=== PATIENT | female | born 1970 | race Caucasian/White ===

== ENCOUNTER → 2024-05-13 10:52 | Outpatient (BNVA) | payer MEDICAID, SELFPAY | PROVIDERS: PCP Family Medicine; Visit Provider Dietitian, Registered | DX: R13.10 Dysphagia, unspecified (principal) | CPT/HCPCS: 97802 ==

== ENCOUNTER → 2024-05-13 10:52 | Outpatient (AMB) | payer MEDICAID, SELFPAY ==
--- NOTE | 2024-05-13 11:00 | MHC.AMNUTRGE ---
VS Expanded 05/13/24 13:41 Height 4 ft 6 in Weight 113 lb 0.4 oz BMI 27.2 Intake Visit Reasons: Dysphagia Allergies Penicillins Adverse Reaction (Verified 05/14/24 09:27) Hives valproic acid Adverse Reaction (Verified 05/14/24 09:28) Hives Medication List - Last Reconciled 05/13/[address], LDN calcium carbonate 500 mg PO DAILY cholecalciferol (vitamin D3) (Pediatric D-Carlos) 10 mcg PO DAILY multivitamin 1 tab PO DAILY Nutrition Presentation Details: Pt presents for MNT for dysphagia Pt is accompanied by alf staff Pt has cerebral palsy, bedridden, hearing loss, intellectual functioning disability. Pt may have 1-2 oz of food via mouth for pleasure only due to risk of aspiration. Pt is getting enteral feedings via Gtube : Osmolite 1.2 @ 100 ml/hr for 9 hours (4 cans/day) and 250 ml water boluses 4 times a day Current feeding provide : 1,137 kcal, 53 g protein, no fiber, 1800 ml water (including water boluses) Pt on MVI, vitamin D and Calcium supplement. Enteral feeding does not contain fiber Per staff, Wt at 113 lbs on 04/24/24 and weight is keeping consistent No concerns of constipation/diarrhea/dehydration/over hydration no wounds /bed sores BS Monitoring Most Recent Diabetes Results: No Data to Display Nutrition Needs Calculation Weight: 113 lb 0.4 oz (51 kg BW) Estimated kcal needs (kcal/day): 1,181 (20-23 kcal/kg BW) Estimated protein needs (gm/day): 51 (1-1.2 g /kg BW) Estimated fluid needs (mls/day): 1,720 (as per Stephan Segar Method) [facility] Medical History (Updated 05/14/24 @ 09:[address], LDN) Atopic dermatitis Intellectual functioning disability Hearing loss Epilepsy Gastrostomy tube in situ Contracture of multiple joints Incontinence GERD (gastroesophageal reflux disease) Cerebral palsy Assessment & Plan Assessment & Plan (1) Dysphagia: Comment: on Enteral feeding via Gtube Code(s): R13.10 - Dysphagia, unspecified Category: Medical Plan: Continue as established: Osmolite 1.2 @100 ml/hr for 9 hours and 250 ml water bolus 4 x per day (to be used for medications, flushes, water boluses) This provides 1080 kcal, 50 g protein, 1800 ml water. This formula does not have fiber May recommend adding fiber, starting with 4 g of fiber a day and gradually increase to 12 g of fiber a day. May recommend 2 tsp of benefiber mixed with 250 ml water once a day for a week and gradually increase to 2 times a day for another week and the third week to 3 times a day. Monitor for tolerance, bloating, constipation or diarrhea. Call for questions. Coding Level of Care Code Nutr Indiv Intake (31296) Diagnoses Dysphagia R13.10 Time Spent (min) 30
--- OUTSIDE RECORDS SUMMARY | 2024-05-13 13:26 | XMS_ITS | Clinical Summary ---
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 Name Role Phone Unavailable Primary Care Provider Unavailabl e Encounters Date Type Department Care Team Description 02/22/2024 Telephone General Surgery - [place] [facility] [address] [place] [address] Adelaida Foote MA from Last 3 Months Social History Tobacco Use Types Packs/Day Years Used Date Smoking Tobacco: Never Assessed Comments Unknown Sex and Gender Information Value Date Recorded Sex Assigned at Not on file Legal Sex Female 4:38 PM EDT Gender Identity Not on file Sexual Orientation Not on file Plan of Treatment Health Maintenance Due Date Last Done Comments Breast Cancer Screening 1972 DTaP,Tdap,and Td Vaccines (1 - Tdap) 1991 Hepatitis B Vaccines (1 of 3 - 19+ 3-dose series) 1991 Cervical Cancer Screening: P ap Smear 1993 Pneumococcal Vaccine: 50+ Ye ars (1 of 1 - PCV) 2022 Zoster Vaccines (1 of 2) 2022 COVID-19 Vaccine (2023-2 5 season) 2023 Influenza Vaccine (#1) 2023 Colorectal Cancer Screening: Colonoscopy 01/06/2024 Depression Screening 01/06/2024 HIV Screening 01/06/2024 Hepatitis C Screening 01/06/2024 Social Influencers of Health Screening 01/06/2024 HIB Vaccines Aged Out No longer eligi ble based on patient's age to complete this topic HPV Vaccines Aged Out No longer eligi ble based on patient's age to complete this topic Hepatitis A Vaccines Aged Out No long er eligible based on patient's age to complete this topic IPV Vaccines Aged Out No longer eligi ble based on patient's age to complete this topic MMR Vaccines Aged Out No longer eligi ble based on patient's age to complete this topic Meningococcal ACWY Vaccine Aged Out N o longer eligible based on patient's age to complete this topic Meningococcal B Vacine Aged Out No lo nger eligible based on patient's age to complete this topic Pneumococcal Vaccine: Pediat rics (0 to 5 Years) and At-Risk Patients (6 to 64 Years) Aged Out No longer eligible b ased on patient's age to complete this topic RSV Immunization Patients Un dianelys 20 months Aged Out No longer eligible b ased on patient's age to complete this topic Varicella Vaccines Aged Out No longer eligible based on patient's age to complete this topic
--- OUTSIDE RECORDS SUMMARY | 2024-05-13 13:26 | XMS_ITS | Data Portability ---
Author Organization [place] [facility], Allergy Address [address] [address] Care Team Providers Care Electrodynamicist Name Role Phone ALLEN PÉREZ Primary Care Provider Assessment Encounter Date Assessment Date Assessment LastModified by Organization Details LastModified Time 08/21/2023 08/21/2023 Impacted cerumen was debrided bilaterally today. Ear exam is otherwise normal. She will follow up in four months, sooner with any acute concerns. lore Not available 08/21/2023 11:34:11 02/04/2024 02/04/2024 Impacted cerumen was debrided bilaterally today. She will follow up in four months. [email or web address] Not available 02/04/2024 11:41:39 Plan of Treatment Reminders Order Date Submit Date Provider Last Modified By Organization Details Last Modified Time Details Appointments Establish ed 15 2024 11:30A M VENKAT DE LA CRUZ PA-C Not available Not available Not available Lab None recorded. Referral None recorded. Procedures None recorded. Surgeries None recorded. Imaging None recorded. Medication Orders None recorded. Patient TargetsNo targets recorded. Patient InstructionsNo instructions recorded. Reason for Referral None Reported. Problems Name Problem SNOMED Code Status Onset Date Resolution Date Notes Provider Name and Address Organization Details Recorded Time Impacted cerumen of bilateral ears 69421788785 62331 Active 2018 Impacted cerumen, bilateral ; Note: Date Diagnosed : 09/26/2018 11:06 AM (H61.23) Not Available [facility] 02:13:29 Acute serous otitis media of right ear 44405066971 67170 Active 2014 Acute serous otitis media, right ear; Note: Date Diagnosed : 01/15/2015 8:39 AM (H65.01) Not Available [facility] 4 02:12:42 Disorder of right Eustachia n tube 94249648505 89346 Active 2014 Other specified disorders of Eustachia n tube, right ear; Note: Date Diagnosed : 01/14/2015 11:45 AM (H69.81) Not Available [facility] 4 02:14:21 Impacted cerumen in left ear 68148569708 81877 Active 2019 Impacted cerumen, left ear; Note: Date Diagnosed : 10/30/2019 4:35 PM (H61.22) Not Available [facility] 4 02:14:21 Otorrhea of right ear 48197427864 34956 Active 2019 Otorrhea, right ear; Note: Date Diagnosed : 04/09/2019 11:39 AM (H92.11) Not Available [facility] 4 02:14:00 Impacted cerumen in right ear 46394665125 47582 Active 2015 Impacted cerumen, right ear; Note: Date Diagnosed : 04/09/2015 4:57 AM (H61.21) Not Available [facility] 4 02:12:59 Cerebral palsy 224533722 Active 2023 ROSALIA MOLINA PA-C [address] [place], [place] [address], [address] , [facility] 4 11:33:20 Functiona l quadriple sukhwinder 47743676640 9106 Active 2023 ROSALIA MOLINA PA-C [address] [place], [place] [address], [address] , [facility] 4 11:33:34 Problem Notes None recorded. Medical Equipment None Reported. Allergies Allergen ID Allergen Name Allergen Category Reaction Reaction Severity Criticality Documentation Date Start Date Code Code System Note Provider Name and Address Organization Details Recorded Time 78949 valproic acid medicatio n other Not available Not available 07/24/2023 97226 RxNorm React ion: unkno wn, unspe rosette d;; Not Available [facility] 4 00:48:47 11013 penicilli n V potassium medicatio n other Not available Not available 07/24/2023 5 RxNorm React ion: unkno wn, unspe cifie d;; Not Available [facility] 4 00:49:04 Medications Name Sig Start Date Stop Date Status Note LastModified by Organization Details LastModified Time melatonin 1 mg tabs active Not Available Not Available No t Available oralyte soln active Not Available Not Available Not Available multivitam in tabs active Not Available Not Available Not Available multivitam in tablet active Not Available Not Available No t Available hydrocorti sone 0.5 % topical cream 2014 active Medicatio n ID: [id number] Br and Name: hydrocort isone Sen d Method: E-Prescri bed Subs Allowed: subs OK Medica tionGener icName: hydrocort isone Not Available Not Available Not Available acetaminop hen 325 mg tablet active Not Available Not Available Not Available loperamide 2 mg capsule active Not Available Not Available Not Available sucralfate 100 mg/mL oral suspension GIVE 10ML VIA G TUBE THREE TIMES A DAY active Not Available Not Available No t Available Calcium Antacid 200 mg (as calcium carbonate 500 mg) chewable tablet active Not Available Not Available Not Available Enema Disposable 19 gram-7 gram/118 mL active Not Available Not Available Not Available Calciferol 200 mcg/mL (8,000 unit/mL) oral drops 2014 active Medicatio n ID: [id number] Br and Name: Calcifero l Send Method: E-Prescri bed Subs Allowed: subs OK Medica tionGener icName: Calcifero l Not Available Not Available Not Available guaifenesi n 100 mg/5 mL oral liquid 2014 active Medicatio n ID: [id number] Br and Name: guaifenes in Send Method: E-Prescri bed Subs Allowed: subs OK Medica tionGener icName: guaifenes in Not Available Not Available Not Available ofloxacin 0.3 % ear drops 4 drop 2019 active Medicatio n ID: [id number] Du ration Value: 7 Prescrib ed By Name: SERGIO Hart Name: ofloxacin Send Method: E-Prescri bed Subs Allowed: subs OK Medica tionGener icName: ofloxacin Not Available Not Available Not Available benzoyl peroxide 6 % topical cleanser 2014 active Medicatio n ID: [id number] Br and Name: benzoyl peroxide Send Method: E-Prescri bed Subs Allowed: subs OK Medica tionGener icName: benzoyl peroxide Not Available Not Available Not Available triamcinol one acetonide 0.025 % topical cream 2014 active Medicatio n ID: [id number] Br and Name: triamcino lone acetonide Send Method: E-Prescri bed Subs Allowed: subs OK Medica tionGener icName: triamcino lone acetonide Not Available Not Available Not Available baclofen 10 mg tablet active Not Available Not Available Not Available bisacodyl 10 mg rectal suppositor y active Not Available Not Available Not Available diphenhydr amine 25 mg capsule active Not Available Not Available N ot Available triamcinol one acetonide 0.1 % topical ointment active Not Available Not Available Not Available diphenhydr amine 25 mg tablet 2014 active Medicatio n ID: [id number] Br and Name: diphenhyd ramine HCl Send Method: E-Prescri bed Subs Allowed: subs OK Medica tionGener icName: diphenhyd ramine HCl Not Available Not Available Not Available ibuprofen 400 mg tablet 2014 active Medicatio n ID: [id number] Br and Name: ibuprofen Send Method: E-Prescri bed Subs Allowed: subs OK Medica tionGener icName: ibuprofen Not Available Not Available Not Available Ear Drops (carbamide peroxide) 6.5 % 5 dropperfu l active Not Available Not Available No t Available bisacodyl 5 mg tablet,del ayed release 2014 active Medicatio n ID: [id number] Br and Name: bisacodyl Send Method: E-Prescri bed Subs Allowed: subs OK Medica tionGener icName: bisacodyl Not Available Not Available Not Available ibuprofen 600 mg tablet active Not Available Not Available Not Available hydrocorti sone 2.5 % topical ointment active Not Available Not Available Not Available minocyclin e 100 mg tablet active Not Available Not Available Not Available bacitracin 500 unit/gram topical packet 2014 active Medicatio n ID: [id number] Br and Name: bacitraci n Send Method: E-Prescri bed Subs Allowed: subs OK Medica tionGener icName: bacitraci n Not Available Not Available Not Available levetirace rodarte 100 mg/mL oral solution active Not Available Not Available Not Available melatonin 1 mg tablet active Not Available Not Available Not Available lactulose 10 gram/15 mL oral solution active Not Available Not Available Not Available calcium 500 mg/5 mL (as calcium carb 1,250 mg/5 mL) oral suspension active Not Available Not Available N ot Available Mylanta 2014 active Medicatio n ID: [id number] Br and Name: mylanta S end Method: E-Prescri bed Subs Allowed: subs OK Medica tionGener icName: mylanta Not Available Not Available Not Available omeprazole 20 mg tablet,del ayed release 2014 active Medicatio n ID: [id number] Br and Name: omeprazol e Send Method: E-Prescri bed Subs Allowed: subs OK Specia l Instructi on: Take 1 tablet by mouth every day before a meal [facility] cationGen ericName: omeprazol e Not Available Not Available Not Available vitamins A and D-white petrolatum -lanolin topical ointment active Not Available Not Available Not Available calcium 760 mg (as citrate)/3 .5 gram oral granules 2014 active Medicatio n ID: [id number] Br and Name: calcium citrate S end Method: E-Prescri bed Subs Allowed: subs OK Medica tionGener icName: calcium citrate Not Available Not Available Not Available lactulose 10 gram/15 mL (15 mL) oral solution 2014 active Medicatio n ID: [id number] Br and Name: lactulose Send Method: E-Prescri bed Subs Allowed: subs OK Medica tionGener icName: lactulose Not Available Not Available Not Available melatonin 2.5 mg chewable tablet 2014 active Medicatio n ID: [id number] Br and Name: melatonin Send Method: E-Prescri bed Subs Allowed: subs OK Medica tionGener icName: melatonin Not Available Not Available Not Available Acne Medication 10 % topical gel active Not Available Not Available Not Available Pediatric D-Carlos 10 mcg/mL (400 unit/mL) oral drops active Not Available Not Available N ot Available Vitals None Recorded Social History None recorded. Functional Status None recorded. Mental Status None recorded. Family History Nothing Reported. Medical History No medical history recorded. Gynecological HistoryNo gynecological history recorded. Obstetrics History GPAL:G 0 P 0 0 0 0 Past Encounters Encounter ID Performer Location Encounter Start Date Encounter Closed Date Diagnosis/Indication Diagnosis SNOMED-CT Code Diagnosis ICD10 Code Diagnosis Note [id number] ALLEN RAGSDALE MD [facility] on [address] [place] [id number] 08/21/2023 11:01:47 08/21/2023 12:18:35 Impacted cerumen of bilateral ears [id number] 364851 H61.23 Cerebral palsy 795557306 G80.9 Functional quadriplegia 9353295817 97426 R53.2 [id number] TERRENCE MCCALL MD [facility] on [address] [place] [id number] 2 02/04/2024 11:13:37 02/04/2024 11:41:00 Impacted cerumen of bilateral ears [id number] 547921 H61.23 Health Concerns Section Related Observation LastModified by Organization Detai ls LastModified Time None Recorded Concern Status LastModified by Organization Details LastModified Time None Recorded Advance Directives Directive None Recorded Payers Encounter Date Sequence Insurance Name Policy Number Policy Warren Covered Member ID Warren Member ID Guarantor Name 08/21/2023 1 [facility] Samina White [id number] Samina White 02/04/2024 1 [facility] Samina White [id number] Samina White Notes Date Note Type Note Provider Name and Address Organization Details Recorded Time 08/21/2023 text/html 53 year old valentina gomez presents today with her acid mixer for cerumen removal. She has a history of CP, quadriplegia and hypoxic ischemic encephalopathy. No concerns regarding the ears today. ALLEN RAGSDALE MD [address] [place] [address], [phone], [facility] - [facility] 08/21/2023 12:50:09 02/04/2024 text/html 53 year old valentina gomez presents today with her acid mixer for cerumen removal. She has a history of CP, quadriplegia and hypoxic ischemic encephalopathy. No concerns regarding the ears today. TERRENCE MCCALL MD [address] [place] [address], [place], [address], [place] - [facility] 02/04/2024 18:45:02 OBGyn Episode No OBEpisode recorded.
[2024-05-13 13:41] VITALS: BMI 27.2
== END ==
PROVIDERS: PCP Family Medicine; Visit Provider Dietitian, Registered
DX: R13.10 Dysphagia, unspecified (principal)